=== PATIENT | female | born 1990 | race Caucasian/White ===

== ENCOUNTER 2018-09-08 16:20 | Emergency (ER) | payer BC, OTHER ==
[~2018-09-08] VITALS: Ht 160 cm; Wt 88.0 kg
[~2018-09-08 16:20] MED LIST: AZIT250T PO; FIORICET PO; IBUP-1542 PO
[2018-09-08 16:21] VITALS: Ht 160 cm; Wt 88.0 kg
[2018-09-08] MEDS ORDERED: KETOROLAC 60 MG INJ IM STA (16:46)
[2018-09-08] MEDS ORDERED: IBUP-1542 PO (16:50)
[2018-09-08] MEDS ORDERED: D-ME473S2 PO (16:50)
--- NOTE | 2018-09-08 16:57 | ERD ---
ER Documentation Chief Complaint Chief Complaint FEVER BODYACHES X 1 DAY. HPI 27-year-old female patient with no significant past medical history presents to ED complaining of fever, body aches, cough, congestion that started about 2 days ago. She is also had a bilateral temporal headache that she describes as achy and rates it a 6 out of 10. Denies any head or neck injuries. Patient reports that she has been taking Tylenol and NyQuil without any relief. Reports that her fever at home today was around 102 and 103. Denies any sick contacts. Denies any fever, chills, chest pain, shortness of breath, wheezing, neck stiffness, abdominal pain, nausea, vomiting, diarrhea. Patient reports that she is eating appropriately, tolerating oral intake, has normal bowel movements and good urine output. ROS All systems reviewed and are negative except as per history of present illness. Medications Home Meds Active Scripts Dextromethorphan Hb-Promethazine Hcl* (Promethazine DM* Syrup) 473 Ml Syrup, 5 ML PO Q6 PRN for COUGH, #120 ML Prov:GERA SCHREIBER PA-C 09/08/18 Ibuprofen* (Motrin*) 600 Mg Tab, 600 MG PO Q6, #30 TAB Prov:GERA SCHREIBER PA-C 09/08/18 Ibuprofen* (Motrin*) 600 Mg Tab, 600 MG PO Q6, #18 TAB Prov:RAFI MILAN MD 10/15/15 Acetamin/Butalbital/Caffeine* (Fioricet*) 1 Tab Tab, 1 TAB PO Q4H PRN for PAIN LEVEL 1-5, #14 TAB Prov:RAFI MILAN MD 10/15/15 Azithromycin* (Zithromax*) 250 Mg Tablet, 250 MG PO .ZPACK DIRECTED, #6 TAB TAKE 500 MG (2 TABS) THE FIRST DAY THEN 250 MG (1 TAB) DAYS 2-5 Prov:RAFI MILAN MD 10/15/15 Reported Medications Ibuprofen* (Ibuprofen*) 600 Mg Tablet, 600 MG PO Q6 PRN 08/20/12 Allergies Allergies: Coded Allergies: iodine (Verified Allergy, Severe, THROAT SWELLS, 10/15/15) Uncoded Allergies: SHRIMP (Allergy, Severe, THROAT SWELLS, 09/19/11) PMhx/Soc History of Surgery: Yes (C/SECTION X 1) Anesthesia Reaction: No Hx Neurological Disorder: No Hx Respiratory Disorders: No Hx Cardiac Disorders: No Hx Psychiatric Problems: No Hx Miscellaneous Medical Probl: Yes (KIDNEY STONES) Hx Alcohol Use: No Hx Substance Use: No Hx Tobacco Use: No FmHx Family History: No diabetes, No coronary disease Physical Exam Vitals Vital Signs Date Temp Pulse Resp B/P (MAP) Pulse Ox O2 O2 Flow FiO2 Time Delivery Rate 09/08/18 98.8 90 18 130/74 95 16:21 (92) Physical Exam Const: Gie-yni-ytebpaqpj, well-nourished. In no acute distress. Head: Atraumatic, normocephalic Eyes: Normal Conjunctiva without injection. No purulent discharge. PERRL. EOMI ENT: Normal external ear. Ear canal without erythema. Tympanic membrane pearly gregorio without effusion or bulging. Nasal canal clear with normal turbinates. Moist oropharynx without tonsillar exudates. Non-erythematous pharynx. Uvula midline. No drooling. No trismus. Neck: Full range of motion. No meningismus. No cervical lymphadenopathy. Resp: Clear to auscultation bilaterally. No wheezing, rhonchi, rales, or crackles. No accessory muscle use. No retractions. Cardio: Regular rate and rhythm. No murmurs, rubs or gallops. Abd: Soft, non tender, non distended. Normal bowel sounds. No palpable masses. No rebound tenderness. No guarding. Skin: No petechiae or rashes Back: No midline tenderness. No CVA tenderness. Ext: No cyanosis, or edema. Neur: Awake and alert. Psych: Normal Mood and Affect Results 24 hrs Current Medications Medications Dose Sig/Rose Start Time Status Last (Trade) Ordered Route PRN Stop Time Admin Dose Reason Admin Ketorolac 60 mg ONCE STAT 09/08/18 DC Tromethamine IM 16:46 (Toradol) 09/08/18 16:47 Procedures/MDM 27-year-old female patient with no significant past medical history presents to ED complaining of fever, body aches, headache, cough, congestion that started 2 days ago. Patient is afebrile and nontoxic-appearing. Patient symptoms are likely secondary to viral etiology. Patient was given Toradol 60 mg IM here in the ED. Urine negative. This patient presents to the ED with symptoms consistent with a viral acute upper respiratory infection. Patient's physical exam include lungs which were clear to auscultation and a normal pulse oximetry. There is a low suspicion for pneumonia, pneumothorax, mononucleosis, pulmonary embolism, epiglottitis, otitis media, otitis externa, viral/strep pharyngitis, sinusitis, myocarditis, pericarditis, endocarditis, peritonsillar abscess, mastoiditis, retropharyngeal abscess, meningitis, sepsis, acute abdomen or other emergent conditions. Fluids, rest, and symptomatic treatment are recommended for the management of patient's symptoms. Diagnosis: Fever, Cough, Headache, Body aches Discharge medications: Promethazine DM, ibuprofen Patient was instructed to return to the ED for any new or worsening symptoms. They should otherwise follow up with the primary care provider within 2-3 days. The patient's questions were answered at the time of discharge. Patient understood and agreed with discharge management. Disclaimer: Inadvertent spelling and grammatical errors are likely due to EHR/dictation software use and do not reflect on the overall quality of patient care. Also, please note that the electronic time recorded on this note does not necessarily reflect the actual time of the patient encounter. Departure Diagnosis: Primary Impression: Fever Fever type: unspecified Qualified Codes: R50.9 - Fever, unspecified Additional Impressions: Cough Headache Headache type: unspecified Headache chronicity pattern: unspecified pattern Intractability: not intractable Qualified Codes: R51 - Headache Body aches Condition: Stable Patient Instructions: Viral Syndrome (Adult) Referrals: [facility] YOU HAVE RECEIVED A MEDICAL SCREENING EXAM AND THE RESULTS INDICATE THAT YOU DO NOT HAVE A CONDITION THAT REQUIRES URGENT TREATMENT IN THE EMERGENCY DEPARTMENT. FURTHER EVALUATION AND TREATMENT OF YOUR CONDITION CAN WAIT UNTIL YOU ARE SEEN IN YOUR DOCTORS OFFICE WITHIN THE NEXT 1-2 DAYS. IT IS YOUR RESPONSIBILITY TO MAKE AN APPOINTMENT FOR FOLOW-UP CARE. IF YOU HAVE A PRIMARY DOCTOR --you should call your primary doctor and schedule an appointment IF YOU DO NOT HAVE A PRIMARY DOCTOR YOU CAN CALL OUR PHYSICIAN REFERRAL HOTLINE AT IF YOU CAN NOT AFFORD TO SEE A PHYSICIAN YOU CAN CHOSE FROM THE FOLLOWING [facility][1] [id number] [facility] [address] [facility]. [facility] [address] [facility] [address] [facility] [address] [facility]. [facility] [address] [facility]. [facility] YOU HAVE RECEIVED A MEDICAL SCREENING EXAM AND THE RESULTS INDICATE THAT YOU DO NOT HAVE A CONDITION THAT REQUIRES URGENT TREATMENT IN THE EMERGENCY DEPARTMENT. FURTHER EVALUATION AND TREATMENT OF YOUR CONDITION CAN WAIT UNTIL YOU ARE SEEN IN YOUR DOCTORS OFFICE WITHIN THE NEXT 1-2 DAYS. IT IS YOUR RESPONSIBILITY TO MAKE AN APPOINTMENT FOR FOLOW-UP CARE. IF YOU HAVE A PRIMARY DOCTOR --you should call your primary doctor and schedule and appointment IF YOU DO NOT HAVE A PRIMARY DOCTOR YOU CAN CALL OUR PHYSICIAN REFERRAL HOTLINE AT . IF YOU CAN NOT AFFORD TO SEE A PHYSICIAN YOU CAN CHOSE FROM THE FOLLOWING [facility], [facility] INSTITUTIONS[facility] [address] [place] [address] [facility] [address] [place] [address] [facility] + [facility] [address] [place] [address] [facility] URGENT CARE/SPECIALTIES Additional Instructions: Call your primary care doctor TOMORROW for an appointment during the next 2-3 days.See the doctor sooner or return here if your condition worsens before your appointment time. GERA SCHREIBER PA-C Sep 08, 2018 16:57
[2018-09-08 17:37] VITALS: BP 122/72; PULSE 88; RESP 18
== END 2018-09-08 17:46 | disposition home or self-care (01) ==
LOC: FTE 16:20
DX: R50.9 Fever, unspecified (principal); R05 Cough; R51 Headache
CPT/HCPCS: 81025; 96372; 99284; J1885